=== PATIENT | female | born 1975 | race African-American/Black ===

== ENCOUNTER 2016-12-07 15:24 | Emergency (ER) | payer BC ==
[~2016-12-07] VITALS: Ht 167.6 cm; Wt 75.0 kg
[2016-12-07] MEDS ORDERED: SODIUM CHLORIDE 0.9% 1,000 ML IV ONE (18:30)
[2016-12-07 20:20] VITALS: BP 126/86
== END 2016-12-07 20:20 | disposition home or self-care (01) ==
LOC: ER 15:26
DX: A08.4 Viral intestinal infection, unspecified (principal); Z88.6 Allergy status to analgesic agent; Z88.1 Allergy status to other antibiotic agents
CPT/HCPCS: 96360; 99284; J7030; Z7610